=== PATIENT | male | born 1990 | race Caucasian/White ===

== ENCOUNTER 2017-09-15 01:00 | Inpatient (IN) ==
[2017-09-15 02:18] LABS: Basophils # 0.1 K/mcL (0.0-0.2); Basophils % 0.3 %; Hematocrit 44.4 % (37.5-50.1); Hemoglobin 15.5 g/dL (12.9-16.9); Immature Granulocytes % 0.7 % (0-4); Lymphocytes # 1.4 K/mcL (0.6-4.6); Mean Corpuscular HGB Conc 34.9 g/dL (31.6-35.5); Mean Corpuscular Volume 88.8 fL (83.0-100.0); Monocytes # 0.5 K/mcL (0.0-1.3); Neutrophils # 15.8 K/mcL (1.6-8.9); Platelet Count 185 K/mcL (140-400)
[2017-09-15 02:20] LABS: Bilirubin,Urine Negative (Negative); Blood,Urine Moderate (Negative); Clarity,Urine Clear (Clear); Color,Urine Dark Yellow (Yellow); Glucose,Urine (UA) Normal (Normal); Ketones,Urine 15 mg/dL (Negative); Leukocyte Esterase,Urine Negative (Negative); Nitrite,Urine Negative (Negative); Protein,Urine 100 mg/dL (Neg-Trace); Specific Gravity,Urine > 1.030 (1.010-1.025); Urobilinogen,Urine Normal (Normal)
[2017-09-15 02:23] LABS: Bacteria,Urine None Seen per hpf (None-Few); Hyaline Casts,Urine None Seen per lpf (None-Few); RBC,Urine 0-3 per hpf (0-3); Squamous Epithelial Cell,Urine Few per lpf (None-Few)
[2017-09-15 02:37] LABS: BUN/Creatinine Ratio 13 (6-26); Blood Urea Nitrogen 15 mg/dL (6-20); Calcium 9.1 mg/dL (8.6-10.3); Carbon Dioxide 25 mEq/L (23-29); Chloride 99 mEq/L (98-107); Glucose 115 mg/dL (70-105); Osmolality,Calculated 280 (280-300); Potassium 3.8 mEq/L (3.5-5.1); Sodium 134 mEq/L (136-145); eGFR For African Americans > 60 (> 60); eGFR For Non-African Americans > 60 (> 60)
--- NOTE | 2017-09-15 03:45 | Emergency Department Note ---
Disposition Clinical Impression: Tachycardia Sepsis Qualifiers: Sepsis type: sepsis due to unspecified organism Qualified Code(s): A41.9 - Sepsis, unspecified organism Pneumonia Qualifiers: Pneumonia type: due to unspecified organism Laterality: right Lung location: lower lobe of lung Qualified Code(s): J18.1 - Lobar pneumonia, unspecified organism Nausea and vomiting Qualifiers: Vomiting type: unspecified Vomiting Intractability: non-intractable Qualified Code(s): R11.2 - Nausea with vomiting, unspecified Disposition: Admitted As Inpatient Condition: Fair Time of Disposition: 05:46 General Adult HPI - General Chief complaint: ED General Medical Stated complaint: vomiting, tired, coughing up blood Time Seen by Provider: 09/15/17 03:33 Source: patient, family Mode of arrival: ambulatory Limitations: no limitations Nursing Notes Reviewed: Yes Vital Signs Reviewed: Yes - History of Present Illness HPI Narrative: Patient is a 27-year-old male that presents the emergency department for nausea vomiting diarrhea, fever and coughing up blood. Patient and family states that this is been ongoing for the past 2 days. States that he has been seen at an urgent care and another emergency department. Patient states that he has been nauseated and vomiting for the past couple of days and then today he started coughing and felt like he had some redness in his sputum. States that he feels generalized weakness and aches. Patient and family state that he was given fluids and tested for influenza and an outside facility which was negative. It is also negative for strep. Pain Scale: 0 - Related Data Home Medications Medication Instructions Recorded Confirmed No Known Home Drugs 09/15/17 09/15/17 Allergies Allergy/AdvReac Type Severity Reaction Status Date / Time azithromycin Allergy Hives Verified 09/15/17 01:09 carter flavor Allergy Swelling Verified 09/15/17 01:09 of Lip/Tongue/Throat All systems ED: reviewed and negative except as stated. Constitutional: Reports: fever, chills, weakness Cardiovascular: Denies: chest pain Respiratory: Reports: cough, sputum production, other (blood in sputum). Denies : dyspnea Gastrointestinal: Reports: nausea, vomiting, diarrhea. Denies: abdominal pain Genitourinary: Denies: urgency, dysuria, frequency Past Medical History - Past Medical History Medical history: Reports: no medical history Psychiatric history: Reports: no psych history - Social History Smoking Status: Current every day smoker Smokeless Tobacco Status: No Alcohol use: Reports: none Drug use: Reports: none Physical Exam - General Limitations: no limitations General appearance: alert, in no apparent distress Course Vital Signs Temperature 99.4 F 09/15/17 01:10 Pulse Rate 117 09/15/17 01:10 Respiratory Rate 18 09/15/17 01:10 Blood Pressure 113/69 09/15/17 01:10 O2 Sat by Pulse Oximetry 95 09/15/17 01:10 Temperature 99.4 F 09/15/17 01:10 Pulse Rate 120 09/15/17 05:00 Respiratory Rate 36 09/15/17 03:44 Blood Pressure 128/64 09/15/17 05:00 O2 Sat by Pulse Oximetry 97 09/15/17 05:00 Oxygen Delivery Oxygen Delivery Room Air Medical Decision Making - MDM Narrative Medical decision making narrative: Due to the patient presenting to the emergency department with nausea and vomiting and not feeling well we will obtain basic laboratory testing including a CBC, BMP, urinalysis, lactic acid and blood cultures and a chest x-ray. Patient had an elevated white count of 17.9. Remainder laboratory testing was unremarkable. The patient did meet sepsis criteria based on being tachycardic, to And having an elevated white count with a source of infection of pneumonia on chest x-ray. Due to the patient having possible community-acquired pneumonia the patient will be started on ceftriaxone and doxycycline here in the emergency department. The patient had an allergy to azithromycin so doxycycline was chosen. Due to the patient meeting sepsis criteria and having a pneumonia feel that the patient needs to be admitted to the hospital for further evaluation and management and IV antibiotics. I called and spoke with the admitting hospitalist Dr. Cao and he has accepted the patient to his service. Patient will be admitted to the hospital at this time for further evaluation and management. - Medical Records Medical records reviewed: Yes I reviewed the patient's medical records. - Lab Data Lab results reviewed: Yes I reviewed the patient's lab results. Result diagrams: 09/15/17 02:03 09/15/17 02:03 Lab Results 09/15/17 09/15/17 09/15/17 Range/Units 02:03 02:03 02:10 WBC 17.9 H (4.3-11.1) K/mcL RBC 5.00 (4.19-5.50) M/mcL Hgb 15.5 (12.9-16.9) g/dL Hct 44.4 (37.5-50.1) % MCV 88.8 (83.0-100.0) fL MCH 31.0 (28.0-33.3) pg MCHC 34.9 (31.6-35.5) g/dL RDW 12.0 (11.5-14.5) % Plt Count 185 (140-400) K/mcL MPV 10.0 (9.4-12.4) fL Immature Gran % 0.7 (0-4) % Seg Neutrophils % 88.0 % Lymphocytes % 8.0 % Monocytes % 3.0 % Eosinophils % 0.0 % Basophils % 0.3 % Neutrophils # 15.8 H (1.6-8.9) K/mcL Lymphocytes # 1.4 (0.6-4.6) K/mcL Monocytes # 0.5 (0.0-1.3) K/mcL Eosinophils # 0.0 (0.0-0.6) K/mcL Basophils # 0.1 (0.0-0.2) K/mcL Sodium 134 L (136-145) mEq/L Potassium 3.8 (3.5-5.1) mEq/L Chloride 99 (98-107) mEq/L Carbon Dioxide 25 (23-29) mEq/L BUN 15 (6-20) mg/dL Creatinine 1.15 (0.70-1.30) mg/dL Est GFR ( Amer) > 60 (> 60) Est GFR (Non-Af Amer) > 60 (> 60) BUN/Creatinine Ratio 13 (6-26) Glucose 115 H (70-105) mg/dL Calculated Osmolality 280 (280-300) Lactic Acid (0.5-2.2) mmol/L Calcium 9.1 (8.6-10.3) mg/dL Urine Color Dark Yellow (Yellow) Urine Clarity Clear (Clear) Urine pH 6.0 (5.0-8.0) pH Units Ur Specific [place] > 1.030 H (1.010-1.025) Urine Protein 100 H (Neg-Trace) mg/dL Urine Glucose (UA) Normal (Normal) mg/dL Urine Ketones 15 H (Negative) mg/dL Urine Blood Moderate H (Negative) Urine Nitrite Negative (Negative) Urine Bilirubin Negative (Negative) Urine Urobilinogen Normal (Normal) mg/dL Ur Leukocyte Esterase Negative (Negative) Urine Microscopic RBC 0-3 (0-3) per hpf Urine Microscopic WBC 3-5 H (0-3) per hpf Ur Squamous Epith Cells Few (None-Few) per lpf Urine Bacteria None Seen (None-Few) per hpf Hyaline Casts None Seen (None-Few) per lpf Ur Culture Indicated? NO (NO) 09/15/17 Range/Units 03:58 WBC (4.3-11.1) K/mcL RBC (4.19-5.50) M/mcL Hgb (12.9-16.9) g/dL Hct (37.5-50.1) % MCV (83.0-100.0) fL MCH (28.0-33.3) pg MCHC (31.6-35.5) g/dL RDW (11.5-14.5) % Plt Count (140-400) K/mcL MPV (9.4-12.4) fL Immature Gran % (0-4) % Seg Neutrophils % % Lymphocytes % % Monocytes % % Eosinophils % % Basophils % % Neutrophils # (1.6-8.9) K/mcL Lymphocytes # (0.6-4.6) K/mcL Monocytes # (0.0-1.3) K/mcL Eosinophils # (0.0-0.6) K/mcL Basophils # (0.0-0.2) K/mcL Sodium (136-145) mEq/L Potassium (3.5-5.1) mEq/L Chloride (98-107) mEq/L Carbon Dioxide (23-29) mEq/L BUN (6-20) mg/dL Creatinine (0.70-1.30) mg/dL Est GFR ( Amer) (> 60) Est GFR (Non-Af Amer) (> 60) BUN/Creatinine Ratio (6-26) Glucose (70-105) mg/dL Calculated Osmolality (280-300) Lactic Acid 1.3 (0.5-2.2) mmol/L Calcium (8.6-10.3) mg/dL Urine Color (Yellow) Urine Clarity (Clear) Urine pH (5.0-8.0) pH Units Ur Specific [place] (1.010-1.025) Urine Protein (Neg-Trace) mg/dL Urine Glucose (UA) (Normal) mg/dL Urine Ketones (Negative) mg/dL Urine Blood (Negative) Urine Nitrite (Negative) Urine Bilirubin (Negative) Urine Urobilinogen (Normal) mg/dL Ur Leukocyte Esterase (Negative) Urine Microscopic RBC (0-3) per hpf Urine Microscopic WBC (0-3) per hpf Ur Squamous Epith Cells (None-Few) per lpf Urine Bacteria (None-Few) per hpf Hyaline Casts (None-Few) per lpf Ur Culture Indicated? (NO) - Radiology Data Radiology results reviewed: Yes I reviewed the patient's radiology results. Chest X-Ray 09/15/17 03:40 IMPRESSION: Right lower lobe airspace disease. D/ / Suleman Osorio MD / Suleman Osorio MD Interpreting Provider: Suleman Osorio MD
[2017-09-15] MEDS ORDERED: 0.9 % Sodium Chloride 1,000 ML IVC ONE (03:48)
[2017-09-15] MEDS ORDERED: Ondansetron 4 MG/2 ML VIAL IVP ONE (03:48)
[2017-09-15] MEDS ORDERED: Doxycycline 100 MG in 0.9 % Sodium Chloride Mini Bag 100 ML IVPB ONE (04:19)
[2017-09-15] MEDS ORDERED: cefTRIAXone 1,000 MG in Water for inj. (sterile) 20 ML 10 ML IVP ONE (04:21)
[2017-09-15] MEDS ORDERED: Ondansetron 4 MG/2 ML VIAL IVP PRN (05:05)
[2017-09-15] MEDS ORDERED: Naloxone 0.4 MG/ML INJ IVP PRN (05:08)
--- NOTE | 2017-09-15 05:08 | Emergency Department Note ---
Disposition Clinical Impression: Tachycardia Sepsis Qualifiers: Sepsis type: sepsis due to unspecified organism Qualified Code(s): A41.9 - Sepsis, unspecified organism Pneumonia Qualifiers: Pneumonia type: due to unspecified organism Laterality: right Lung location: lower lobe of lung Qualified Code(s): J18.1 - Lobar pneumonia, unspecified organism Nausea and vomiting Qualifiers: Vomiting type: unspecified Vomiting Intractability: non-intractable Qualified Code(s): R11.2 - Nausea with vomiting, unspecified Disposition: Admitted As Inpatient Condition: Fair General Adult HPI - General Chief complaint: ED General Medical Stated complaint: vomiting, tired, coughing up blood Time Seen by Provider: 09/15/17 03:33 Source: patient, family Mode of arrival: ambulatory Limitations: no limitations Nursing Notes Reviewed: Yes Vital Signs Reviewed: Yes - History of Present Illness Pain Scale: 0 - Related Data Home Medications Medication Instructions Recorded Confirmed No Known Home Drugs 09/15/17 09/15/17 Allergies Allergy/AdvReac Type Severity Reaction Status Date / Time azithromycin Allergy Hives Verified 09/15/17 01:09 carter flavor Allergy Swelling Verified 09/15/17 01:09 of Lip/Tongue/Throat Constitutional: Reports: fever, chills, weakness Cardiovascular: Denies: chest pain Respiratory: Reports: cough, sputum production, other (blood in sputum). Denies : dyspnea Gastrointestinal: Reports: nausea, vomiting, diarrhea. Denies: abdominal pain Genitourinary: Denies: urgency, dysuria, frequency Past Medical History - Past Medical History Medical history: Reports: no medical history Psychiatric history: Reports: no psych history - Social History Smoking Status: Current every day smoker Smokeless Tobacco Status: No Alcohol use: Reports: none Drug use: Reports: none Physical Exam - General Limitations: no limitations General appearance: alert, in no apparent distress Course Vital Signs Temperature 99.4 F 09/15/17 01:10 Pulse Rate 117 09/15/17 01:10 Respiratory Rate 18 09/15/17 01:10 Blood Pressure 113/69 09/15/17 01:10 O2 Sat by Pulse Oximetry 95 09/15/17 01:10 Temperature 102.1 F H 09/15/17 05:58 Pulse Rate 122 09/15/17 05:58 Respiratory Rate 32 09/15/17 05:58 Blood Pressure 125/68 09/15/17 05:58 O2 Sat by Pulse Oximetry 96 09/15/17 05:58 Oxygen Delivery Oxygen Delivery Room Air Medical Decision Making - Lab Data Result diagrams: 09/15/17 02:03 09/15/17 02:03 Lab Results 09/15/17 09/15/17 09/15/17 Range/Units 02:03 02:03 02:10 WBC 17.9 H (4.3-11.1) K/mcL RBC 5.00 (4.19-5.50) M/mcL Hgb 15.5 (12.9-16.9) g/dL Hct 44.4 (37.5-50.1) % MCV 88.8 (83.0-100.0) fL MCH 31.0 (28.0-33.3) pg MCHC 34.9 (31.6-35.5) g/dL RDW 12.0 (11.5-14.5) % Plt Count 185 (140-400) K/mcL MPV 10.0 (9.4-12.4) fL Immature Gran % 0.7 (0-4) % Seg Neutrophils % 88.0 % Lymphocytes % 8.0 % Monocytes % 3.0 % Eosinophils % 0.0 % Basophils % 0.3 % Neutrophils # 15.8 H (1.6-8.9) K/mcL Lymphocytes # 1.4 (0.6-4.6) K/mcL Monocytes # 0.5 (0.0-1.3) K/mcL Eosinophils # 0.0 (0.0-0.6) K/mcL Basophils # 0.1 (0.0-0.2) K/mcL Sodium 134 L (136-145) mEq/L Potassium 3.8 (3.5-5.1) mEq/L Chloride 99 (98-107) mEq/L Carbon Dioxide 25 (23-29) mEq/L BUN 15 (6-20) mg/dL Creatinine 1.15 (0.70-1.30) mg/dL Est GFR ( Amer) > 60 (> 60) Est GFR (Non-Af Amer) > 60 (> 60) BUN/Creatinine Ratio 13 (6-26) Glucose 115 H (70-105) mg/dL Calculated Osmolality 280 (280-300) Lactic Acid (0.5-2.2) mmol/L Calcium 9.1 (8.6-10.3) mg/dL Urine Color Dark Yellow (Yellow) Urine Clarity Clear (Clear) Urine pH 6.0 (5.0-8.0) pH Units Ur Specific [place] > 1.030 H (1.010-1.025) Urine Protein 100 H (Neg-Trace) mg/dL Urine Glucose (UA) Normal (Normal) mg/dL Urine Ketones 15 H (Negative) mg/dL Urine Blood Moderate H (Negative) Urine Nitrite Negative (Negative) Urine Bilirubin Negative (Negative) Urine Urobilinogen Normal (Normal) mg/dL Ur Leukocyte Esterase Negative (Negative) Urine Microscopic RBC 0-3 (0-3) per hpf Urine Microscopic WBC 3-5 H (0-3) per hpf Ur Squamous Epith Cells Few (None-Few) per lpf Urine Bacteria None Seen (None-Few) per hpf Hyaline Casts None Seen (None-Few) per lpf Ur Culture Indicated? NO (NO) 09/15/17 Range/Units 03:58 WBC (4.3-11.1) K/mcL RBC (4.19-5.50) M/mcL Hgb (12.9-16.9) g/dL Hct (37.5-50.1) % MCV (83.0-100.0) fL MCH (28.0-33.3) pg MCHC (31.6-35.5) g/dL RDW (11.5-14.5) % Plt Count (140-400) K/mcL MPV (9.4-12.4) fL Immature Gran % (0-4) % Seg Neutrophils % % Lymphocytes % % Monocytes % % Eosinophils % % Basophils % % Neutrophils # (1.6-8.9) K/mcL Lymphocytes # (0.6-4.6) K/mcL Monocytes # (0.0-1.3) K/mcL Eosinophils # (0.0-0.6) K/mcL Basophils # (0.0-0.2) K/mcL Sodium (136-145) mEq/L Potassium (3.5-5.1) mEq/L Chloride (98-107) mEq/L Carbon Dioxide (23-29) mEq/L BUN (6-20) mg/dL Creatinine (0.70-1.30) mg/dL Est GFR ( Amer) (> 60) Est GFR (Non-Af Amer) (> 60) BUN/Creatinine Ratio (6-26) Glucose (70-105) mg/dL Calculated Osmolality (280-300) Lactic Acid 1.3 (0.5-2.2) mmol/L Calcium (8.6-10.3) mg/dL Urine Color (Yellow) Urine Clarity (Clear) Urine pH (5.0-8.0) pH Units Ur Specific [place] (1.010-1.025) Urine Protein (Neg-Trace) mg/dL Urine Glucose (UA) (Normal) mg/dL Urine Ketones (Negative) mg/dL Urine Blood (Negative) Urine Nitrite (Negative) Urine Bilirubin (Negative) Urine Urobilinogen (Normal) mg/dL Ur Leukocyte Esterase (Negative) Urine Microscopic RBC (0-3) per hpf Urine Microscopic WBC (0-3) per hpf Ur Squamous Epith Cells (None-Few) per lpf Urine Bacteria (None-Few) per hpf Hyaline Casts (None-Few) per lpf Ur Culture Indicated? (NO) Critical Care Time Critical Care Time: Yes Total Critical Care Time: 35 Attestation: Critical care performed: Time is exclusive of separately billable procedures. Time includes: direct patient care, patient reassessment, coordination of patient care, interpretation of data (laboratory data, radiology data, and respiratory data), review of patient's medical records, medical consultation and documentation of patient care. Procedures included in critical care time: Procedures excluded from critical care time: Attestation Statement - Attestation Attestation: I, Gilberto Delgadillo MD, personally evaluated this patient and discussed their management with the resident physician. I reviewed the resident's note and agree with the documented findings, medical decision making, and plan of care. 27-year-old male presents to the emergency department with a complaint of cough and fatigue for 2-3 days prior to arrival. He has had some vomiting for the past few days. He also has had a fever up to 103. Some pleuritic chest pain with coughing. Today started coughing up some blood-streaked sputum. Mild shortness of breath. No prior history of any breathing problems. On examination patient is a well-developed obese male in no acute distress but does appear acutely ill. He is alert and oriented 3. There is no cyanosis or diaphoresis. Chest is nontender to palpation. Breath sounds are clear and equal bilaterally. No rales or wheezes noted. Heart regular with a mild tachycardia. Abdomen soft and nontender with normal bowel sounds. Labs reviewed. Chest x-ray shows a right lower lobe pneumonia. Blood cultures obtained. IV antibiotics initiated. The hospitalist, Dr. Cao , was consulted and accepted admission of the patient.
--- NOTE | 2017-09-15 05:46 | Internal Med History&Physical ---
Date of Encounter: 09/15/17 Time of Encounter: 05:42 Internal Medicine - H&P: HPI Chief complaint: Fever Admitted From: Emergency Dept Plans for Post Hospital Care: Home History of present illness: Mr. Marina is a 27 year old male who is fairly healthy has no chronic medical conditions and is not on any medications who presents as he has been having a fever up to 103 for a couple days associated with shortness of breath, a productive cough, nausea, vomiting, loose stools. This started 2 days ago and he ended up going to [facility] urgent care and the ED there as well and was discharged on Zofran and was told that he was dehydrated. His ago and tells me no chest x-ray was done at the time. He continued to have symptoms at home and she brought him to [place] were he was tachycardic in the 120s. MAXIMUM TEMPERATURE 99.4 on presentation. His workup showed leukocytosis and chest x- ray showed an infiltrate in the right lower lung. The patient was given IV doxycycline and IV ceftriaxone and 1 L normal saline bolus and we were asked to admit the patient. The family states that his cough is productive of yellowish sputum with some bloody streaks. His loose stools were significant for the last couple days however this morning he only had 1 watery stool. He has had no sick contacts. Has not been on any antibiotics recently. Denies any headache, blurry vision, chest pain, abdominal pain, urinary symptoms, or neurological symptoms. Past Med Surg Social Fam HX - Past Medical History Medical history: no medical history Psychiatric history: no psych history - Social History Smoking Status: Current every day smoker Smokeless Tobacco Status: No Alcohol use: none Drug use: none Internal Medicine - H&P: Meds No Known Home Drugs 09/15/17 [History] 3 Allergy/AdvReac Type Severity Reaction Status Date / Time azithromycin Allergy Hives Verified 09/15/17 01:09 carter flavor Allergy Swelling Verified 09/15/17 01:09 of Lip/Tongue/Throat All Systems PM: A 10-system review of systems was performed and is negative for pertinent findings except as documented above in the HPI. Review of systems: All systems reviewed are negative except as mentioned above - Constitutional Vitals: Temp Pulse Resp BP Pulse Ox 99.4 F 120 36 128/64 97 09/15/17 01:10 09/15/17 05:00 09/15/17 03:44 09/15/17 05:00 09/15/17 05:00 Exam: GEN: Lethargic HEENT: AT, NC, No cyanosis, oral mucosa is moist, No JVD Lymphatics: No lymphadenoapthy Eyes: Extrocular muscles intact, anicteric CVS: Tachycardic. S1, S2, No m/r/g RESP: Rhonchorous at the right lower lung field posteriorly ABD: Soft, NT, ND, +BS EXT: No edema, No rashes, 2+ DP NEURO: Nonfocal, CN II-XII intact, No focal motor or sensory deficits Psych: Cooperative, Not anxious or depressed Internal Med - H&P Results - Labs CBC & Chem 7: 09/15/17 02:03 09/15/17 02:03 - Assessment and plan (1) Sepsis Current Visit: Yes Status: Acute Assessment and plan: Patient meets criteria with tachycardia and leukocytosis. He also has a source with pneumonia. We will treat underlying cause as below. Has normal lactic acid. Qualifiers: Sepsis type: sepsis due to unspecified organism Qualified Code(s): A41.9 - Sepsis, unspecified organism (2) Community acquired pneumonia Current Visit: Yes Status: Acute Assessment and plan: We will place the patient on Levaquin IV. Maintenance IV fluids with normal saline. Nebs when necessary. Patient is not hypoxic. Check sputum cultures. Check urine strep and Legionella. Follow-up on blood cultures. Qualifiers: Laterality: right Lung location: lower lobe of lung Qualified Code(s): J18.1 - Lobar pneumonia, unspecified organism (3) Nausea & vomiting Current Visit: Yes Status: Acute Assessment and plan: This is associated with loose stools. The loose stools seem to be improving. He has no abdominal pain. I think for now we can treat symptomatically and check stool panel. Symptoms may be attributed to his overall sickness with pneumonia. We can get a CT abdomen and pelvis if his symptoms persist but hold off for now and monitor. Qualifiers: Vomiting type: unspecified Vomiting Intractability: unspecified Qualified Code(s): R11.2 - Nausea with vomiting, unspecified (4) Elevated glucose Current Visit: Yes Status: Acute Assessment and plan: The patient has mild elevated glucose on his BMP. It was 115. We will check A1c. (5) DVT prophylaxis Current Visit: Yes Status: Acute Assessment and plan: SCDs - Time Spent With Patient Total time spent is greater than 50% in coordination of care (as documented) at patient's floor/unit and/or counseling patient:
[2017-09-15] MEDS ORDERED: *HR* Heparin 5,000 UNIT/ML VIAL SQ SCH (06:00)
[2017-09-15] MEDS ORDERED: Ipratropium/Albuterol Neb 3 ML IH SCH (10:00)
[2017-09-15] MEDS: Levofloxacin 750 MG/150 ML 750 MG/150 ML BAG IVPB SCH (10:11)
[2017-09-15] MEDS ORDERED: *HR* Metoprolol 5 MG/5 ML VIAL IVP PRN (10:53)
--- NOTE | 2017-09-15 11:01 | Internal Med Progress Note ---
Date of Encounter: 09/15/17 Time of Encounter: 10:57 - Assessment and plan (1) Sepsis Current Visit: Yes Status: Acute Assessment and plan: Patient meets criteria with tachycardia and leukocytosis. He also has a source with pneumonia. We will treat underlying cause as below. Has normal lactic acid. He is dehydrated seen on physical exam and urine. CXR showed pneumonia. Of note, he complains of N/V and techs noted his stool is liquid. May need to switch to Zosyn vs continue Levaquin May need CT abdomen/pelvis - Give 2 L ringer lactate, he has already received 1 L on admission but patient needs aggressive fluid. - Follow-up blood cultures, sputum and antigens. Qualifiers: Sepsis type: sepsis due to unspecified organism Qualified Code(s): A41.9 - Sepsis, unspecified organism (2) Community acquired pneumonia Current Visit: Yes Status: Acute Assessment and plan: Continue Levaquin - add 2 L LR bolus - Patient is not hypoxic. Check sputum cultures. - Check urine strep and Legionella. Follow-up on blood cultures. Qualifiers: Laterality: right Lung location: lower lobe of lung Qualified Code(s): J18.1 - Lobar pneumonia, unspecified organism (3) Nausea & vomiting Current Visit: Yes Status: Acute Assessment and plan: This is associated with loose stools. The loose stools seem to be improving. He has no abdominal pain. I think for now we can treat symptomatically and check stool panel. Symptoms may be attributed to his overall sickness with pneumonia. Consider CT abdomen and pelvis if his symptoms persist but hold off for now and monitor. Qualifiers: Vomiting type: unspecified Vomiting Intractability: unspecified Qualified Code(s): R11.2 - Nausea with vomiting, unspecified (4) Elevated glucose Current Visit: Yes Status: Acute Assessment and plan: The patient has mild elevated glucose on his BMP. We will check A1c. (5) DVT prophylaxis Current Visit: Yes Status: Acute Assessment and plan: SCDs - Time Spent With Patient Total time spent is greater than 50% in coordination of care (as documented) at patient's floor/unit and/or counseling patient: - Subjective Interval history: Patient complains of being tired. Nursing reports dark urine which I do appreciate tea colored urine at bedside as well. He denies any shortness of breath at the moment. A stool sample was ordered on admission and tech noted that it was very loose. - Constitutional Vitals: Temp Pulse Resp BP Pulse Ox 102.1 F H 122 19 125/68 94 09/15/17 05:58 09/15/17 05:58 09/15/17 09:59 09/15/17 05:58 09/15/17 10:21 - Head Head exam: Present: atraumatic, normocephalic - Eye Eye exam: Present: PERRL, conjuntiva pink, sclera anicteric Pupils: Present: PERRL - ENT ENT exam: Present: mucous membranes dry - Neck Neck exam general surgery: Present: supple, trachea midline. Absent: lymphadenopathy - Respiratory Respiratory exam: Present: CTAB. Absent: accessory muscle use, rales, rhonchi, wheezes - Cardiovascular Cardiovascular exam: Present: +S1, +S2, tachycardia. Absent: diastolic murmur, gallop, rubs, systolic murmur - GI/Abdominal GI/Abdominal exam: Present: normal bowel sounds, soft, no peritoneal signs. Absent: distended, tenderness - Additional comments: Collected urine at bedside is dark, tea colored. - Extremities Exam Extremities exam: Present: warm, radial pulses palpable and symmetrical. Absent : calf tenderness, cyanotic, pedal edema - Neurological Exam Neurological exam: Present: CN II-XII intact, oriented X3, no focal deficits. Absent: pronater drift, facial droop, speech deficit - Skin Skin exam: Present: dry, intact Internal Medicine: Result - Labs CBC & Chem 7: 09/15/17 02:03 09/15/17 02:03 Consult Discharge Plan - Plan Referrals: NONE,PCP [Primary Care Provider] -
[2017-09-15] MEDS: Acetaminophen 325 MG TABLET PO PRN ×2 (11:13→16:28)
[2017-09-15] MEDS: Ringers Solution, Lactated 2,000 ML IVC ONE ×2 (11:14→16:20)
[2017-09-15] MEDS ORDERED: Ipratropium/Albuterol Neb 3 ML IH PRN (11:51)
[2017-09-15 13:24] LABS: C.difficile Toxin A/B by PCR Not detected (Not detect); Campylobacter by PCR Not detected (Not detect); Cryptosporidium by PCR Not detected (Not detect); E. coli O157 by PCR Not detected (Not detect); Enteroaggregative E.coli(EAEC) Not detected (Not detect); Enteropathogenic E.coli(EPEC) Not detected (Not detect); Enterotoxigenic E.coli (ETEC) Not detected (Not detect); Plesiomonas shigelloides PCR Not detected (Not detect); Salmonella PCR Not detected (Not detect); Shig/EnteroinvasiveE coli EIEC Not detected (Not detect); Shigalike tox-prod E coli STEC Not detected (Not detect); Vibrio PCR Not detected (Not detect); Vibrio cholerae PCR Not detected (Not detect); Yersinia enterocolitica PCR Not detected (Not detect)
[2017-09-15 13:25] LABS: Adenovirus F 40/41 PCR Not detected (Not detect); Astrovirus PCR Not detected (Not detect); Cyclospora cayetanensis PCR Not detected (Not detect); Entamoeba histolytica PCR Not detected (Not detect); Giardia lamblia PCR Not detected (Not detect); Norovirus GI/GII PCR Not detected (Not detect); Rotavirus A PCR Not detected (Not detect); Sapovirus PCR Not detected (Not detect)
[2017-09-15] MEDS ORDERED: Ringers Solution, Lactated 1,000 ML ONE (16:13)
[2017-09-15 18:47] LABS: Amphetamine Screen,Urine Negative ng/mL (Cutoff=1000); Barbiturate Screen,Urine Negative ng/mL (Cutoff=200); Benzodiazepines Screen,Urine Negative ng/mL (Cutoff=200); Cannabinoid Screen,Urine Negative ng/mL (Cutoff = 50); Cocaine Screen,Urine Negative ng/mL (Cutoff= 300); Opiate Screen,Urine Negative ng/mL (Cutoff=300); Phencyclidine Screen,Urine Negative ng/mL (Cutoff=25)
[2017-09-16 02:23] LABS: Basophils % 0.1 %; Hematocrit 37.6 % (37.5-50.1); Immature Granulocytes % 0.2 % (0-4); Lymphocytes # 1.1 K/mcL (0.6-4.6); Lymphocytes % 11.9 %; Mean Corpuscular HGB Conc 34.6 g/dL (31.6-35.5); Mean Corpuscular Hemoglobin 29.8 pg (28.0-33.3); Mean Corpuscular Volume 86.2 fL (83.0-100.0); Mean Platelet Volume 10.5 fL (9.4-12.4); Monocytes # 0.3 K/mcL (0.0-1.3); Monocytes % 3.7 %; Neutrophils # 7.6 K/mcL (1.6-8.9); Platelet Count 155 K/mcL (140-400); Red Blood Count 4.36 M/mcL (4.19-5.50); Red Cell Distribution Width 11.9 % (11.5-14.5); Segmented Neutrophils % 84.1 %
[2017-09-16 02:51] LABS: BUN/Creatinine Ratio 12 (6-26); Blood Urea Nitrogen 11 mg/dL (6-20); Calcium 8.4 mg/dL (8.6-10.3); Carbon Dioxide 21 mEq/L (23-29); Chloride 103 mEq/L (98-107); Glucose 111 mg/dL (70-105); Magnesium 1.8 mg/dL (1.6-2.6); Osmolality,Calculated 274 (280-300); Potassium 3.4 mEq/L (3.5-5.1); Sodium 132 mEq/L (136-145); eGFR For African Americans > 60 (> 60); eGFR For Non-African Americans > 60 (> 60)
[2017-09-16] MEDS: Acetaminophen 325 MG TABLET PO PRN ×2 (07:37→18:28)
[2017-09-16] MEDS: Levofloxacin 750 MG/150 ML 750 MG/150 ML BAG IVPB SCH (07:37)
--- NOTE | 2017-09-16 09:15 | Internal Med Progress Note ---
Date of Encounter: 09/16/17 Time of Encounter: 09:13 - Assessment and plan (1) Sepsis Current Visit: Yes Status: Acute Assessment and plan: Patient meets criteria with tachycardia and leukocytosis. He also has a source with pneumonia. We will treat underlying cause as below. Has normal lactic acid. He is dehydrated seen on physical exam and urine. CXR showed pneumonia. GI panel negative Of note, he complains of N/V and techs noted his stool is liquid. May need to switch to Zosyn vs continue Levaquin May need CT abdomen/pelvis, or TTE though denies any drug abuse Still tachycardic despite fluid Follow-up blood cultures: NGTD Qualifiers: Sepsis type: sepsis due to unspecified organism Qualified Code(s): A41.9 - Sepsis, unspecified organism (2) Community acquired pneumonia Current Visit: Yes Status: Acute Assessment and plan: - Continue Levaquin - Patient is not hypoxic. -Urine strep and Legionella negative Qualifiers: Laterality: right Lung location: lower lobe of lung Qualified Code(s): J18.1 - Lobar pneumonia, unspecified organism (3) Nausea & vomiting Current Visit: Yes Status: Acute Assessment and plan: This is associated with loose stools. He has no abdominal pain. Symptoms may be attributed to his overall sickness with pneumonia/sepsis. Consider CT abdomen and pelvis if his symptoms persist but hold off for now and monitor. Symptoms improving but still has loose stools Qualifiers: Vomiting type: unspecified Vomiting Intractability: unspecified Qualified Code(s): R11.2 - Nausea with vomiting, unspecified (4) Elevated glucose Current Visit: Yes Status: Acute Assessment and plan: The patient has mild elevated glucose on his BMP. f/u A1C (5) DVT prophylaxis Current Visit: Yes Status: Acute - Time Spent With Patient Total time spent is greater than 50% in coordination of care (as documented) at patient's floor/unit and/or counseling patient: - Subjective Interval history: Patient complains of being tired. Nursing reports dark urine which I do appreciate tea colored urine at bedside as well. He denies any shortness of breath at the moment. A stool sample was ordered on admission and tech noted that it was very loose. 09/16: states overall feeling better, n/v resolved but still having loose stools. Patient still diaphoretic and tachycardic - Constitutional Vitals: Temp Pulse Resp BP Pulse Ox 100.1 F H 109 18 117/62 94 09/16/17 07:21 09/16/17 07:21 09/16/17 07:21 09/16/17 07:21 09/16/17 07:21 - Head Head exam: Present: atraumatic, normocephalic - Eye Eye exam: Present: PERRL, conjuntiva pink, sclera anicteric Pupils: Present: PERRL - Neck Neck exam general surgery: Present: supple, trachea midline. Absent: lymphadenopathy - Respiratory Respiratory exam: Present: CTAB. Absent: accessory muscle use, rales, rhonchi, wheezes - Cardiovascular Cardiovascular exam: Present: RRR, +S1, +S2. Absent: diastolic murmur, gallop, rubs, systolic murmur - GI/Abdominal GI/Abdominal exam: Present: normal bowel sounds, soft, no peritoneal signs. Absent: distended, tenderness - Extremities Exam Extremities exam: Present: warm, radial pulses palpable and symmetrical. Absent : calf tenderness, cyanotic, pedal edema - Neurological Exam Neurological exam: Present: CN II-XII intact, oriented X3, no focal deficits. Absent: pronater drift, facial droop, speech deficit - Skin Skin exam: Present: dry, intact Internal Medicine: Result - Labs CBC & Chem 7: 09/16/17 01:36 09/16/17 01:36 Labs: Short CBC 09/16/17 Range/Units 01:36 WBC 9.1 (4.3-11.1) K/mcL Hgb 13.0 D (12.9-16.9) g/dL Hct 37.6 (37.5-50.1) % Plt Count 155 (140-400) K/mcL Neutrophils # 7.6 (1.6-8.9) K/mcL BMP 09/16/17 01:36 Sodium 132 L Potassium 3.4 L Chloride 103 Carbon Dioxide 21 L BUN 11 Creatinine 0.89 Glucose 111 H Calcium 8.4 L Consult Discharge Plan - Plan Referrals: NONE,PCP [Primary Care Provider] -
[2017-09-16] MEDS: GuaiFENesin/Dextromethorphan TABLET PO SCH (19:05)
[2017-09-16] MEDS ORDERED: GuaiFENesin Liq 200 MG/10 ML UDC PO SCH (20:00)
[2017-09-17 02:08] LABS: BUN/Creatinine Ratio 17 (6-26); Blood Urea Nitrogen 16 mg/dL (6-20); Calcium 8.7 mg/dL (8.6-10.3); Carbon Dioxide 24 mEq/L (23-29); Chloride 104 mEq/L (98-107); Glucose 103 mg/dL (70-105); Osmolality,Calculated 285 (280-300); Potassium 3.5 mEq/L (3.5-5.1); Sodium 137 mEq/L (136-145); eGFR For African Americans > 60 (> 60); eGFR For Non-African Americans > 60 (> 60)
[2017-09-17 02:30] LABS: Basophils % 0.3 %; Eosinophils # 0.3 K/mcL (0.0-0.6); Eosinophils % 5.4 %; Hematocrit 38.7 % (37.5-50.1); Hemoglobin 13.5 g/dL (12.9-16.9); Immature Granulocytes % 0.5 % (0-4); Lymphocytes # 1.3 K/mcL (0.6-4.6); Lymphocytes % 20.7 %; Mean Corpuscular HGB Conc 34.9 g/dL (31.6-35.5); Mean Corpuscular Hemoglobin 30.6 pg (28.0-33.3); Mean Corpuscular Volume 87.8 fL (83.0-100.0); Mean Platelet Volume 10.5 fL (9.4-12.4); Monocytes # 0.5 K/mcL (0.0-1.3); Monocytes % 7.4 %; Platelet Count 187 K/mcL (140-400); Red Blood Count 4.41 M/mcL (4.19-5.50); Segmented Neutrophils % 65.7 %
[2017-09-17] MEDS ORDERED: Ringers Solution, Lactated 1,000 ML IVC ONE (09:28)
[2017-09-17] MEDS: Levofloxacin 750 MG/150 ML 750 MG/150 ML BAG IVPB SCH (09:28)
[2017-09-17] MEDS: GuaiFENesin/Dextromethorphan TABLET PO SCH ×2 (09:29→19:24)
--- NOTE | 2017-09-17 09:30 | Internal Med Progress Note ---
Date of Encounter: 09/17/17 Time of Encounter: 09:27 - Assessment and plan (1) Sepsis Current Visit: Yes Status: Acute Assessment and plan: Patient meets criteria with tachycardia and leukocytosis. He also has a source with pneumonia. We will treat underlying cause as below. Has normal lactic acid. He is dehydrated seen on physical exam and urine. CXR showed pneumonia. Of note, he complains of N/V and techs noted his stool is liquid. May need to switch to Zosyn vs continue Levaquin Consider TTE though denies any drug abuse Blood cultures, no growth to date. Unsresolved GI symptoms and poor appetite - will get CT abdomen/pelvis without contrast. Negative GI panel. Still tachycardic despite fluid yesterday but today and yesterday night he has not eating at all - give addition IV fluid today. WBCs within normal limits Qualifiers: Sepsis type: sepsis due to unspecified organism Qualified Code(s): A41.9 - Sepsis, unspecified organism (2) Community acquired pneumonia Current Visit: Yes Status: Acute Assessment and plan: - Continue Levaquin - Patient is not hypoxic. -Urine strep and Legionella negative Qualifiers: Laterality: right Lung location: lower lobe of lung Qualified Code(s): J18.1 - Lobar pneumonia, unspecified organism (3) Nausea & vomiting Current Visit: Yes Status: Acute Assessment and plan: This is associated with loose stools. He has no abdominal pain. Symptoms may be attributed to his overall sickness with pneumonia/sepsis. nasuea and vomiting improved but still has loose stools -CT abdomen/pelvis Qualifiers: Vomiting type: unspecified Vomiting Intractability: unspecified Qualified Code(s): R11.2 - Nausea with vomiting, unspecified (4) Elevated glucose Current Visit: Yes Status: Acute Assessment and plan: The patient has mild elevated glucose on his BMP. f/u A1C (5) DVT prophylaxis Current Visit: Yes Status: Acute Assessment and plan: SCDs - Time Spent With Patient Total time spent is greater than 50% in coordination of care (as documented) at patient's floor/unit and/or counseling patient: - Subjective Interval history: Patient complains of being tired. Nursing reports dark urine which I do appreciate tea colored urine at bedside as well. He denies any shortness of breath at the moment. A stool sample was ordered on admission and tech noted that it was very loose. 09/16: n/v resolved but still having loose stools. Patient still diaphoretic and tachycardic 09/17: feels much better than yesterday, loose stools is not improving at all, diet is poor. Looks like he has only eatin 20% of breakfast. - Constitutional Vitals: Temp Pulse Resp BP Pulse Ox 99.3 F 90 18 106/68 95 09/17/17 07:10 09/17/17 07:10 09/17/17 07:10 09/17/17 07:10 09/17/17 07:10 - Head Head exam: Present: atraumatic, normocephalic - Eye Eye exam: Present: PERRL, conjuntiva pink, sclera anicteric Pupils: Present: PERRL - Neck Neck exam general surgery: Present: supple, trachea midline. Absent: lymphadenopathy - Respiratory Respiratory exam: Present: CTAB. Absent: accessory muscle use, rales, rhonchi, wheezes - Cardiovascular Cardiovascular exam: Present: RRR, +S1, +S2. Absent: diastolic murmur, gallop, rubs, systolic murmur - GI/Abdominal GI/Abdominal exam: Present: normal bowel sounds, soft, no peritoneal signs. Absent: distended, tenderness - Extremities Exam Extremities exam: Present: warm, radial pulses palpable and symmetrical. Absent : calf tenderness, cyanotic, pedal edema - Neurological Exam Neurological exam: Present: CN II-XII intact, oriented X3, no focal deficits. Absent: pronater drift, facial droop, speech deficit - Skin Skin exam: Present: dry, intact Internal Medicine: Result - Labs CBC & Chem 7: 09/17/17 01:22 09/17/17 01:22 Labs: Short CBC 09/17/17 Range/Units 01:22 WBC 6.1 (4.3-11.1) K/mcL Hgb 13.5 (12.9-16.9) g/dL Hct 38.7 (37.5-50.1) % Plt Count 187 (140-400) K/mcL Neutrophils # 4.0 (1.6-8.9) K/mcL BMP 09/17/17 01:22 Sodium 137 Potassium 3.5 Chloride 104 Carbon Dioxide 24 BUN 16 Creatinine 0.93 Glucose 103 Calcium 8.7 - VTE Documentation of Mechanical Device: Intermittent pneumatic compression device Consult Discharge Plan - Plan Referrals: NONE,PCP [Primary Care Provider] -
[2017-09-17] MEDS: GuaiFENesin Liq 200 MG/10 ML UDC PO PRN (14:09)
[2017-09-18 01:34] LABS: Basophils % 0.6 %; Eosinophils # 0.5 K/mcL (0.0-0.6); Eosinophils % 7.5 %; Hematocrit 38.4 % (37.5-50.1); Hemoglobin 13.1 g/dL (12.9-16.9); Immature Granulocytes % 0.6 % (0-4); Lymphocytes # 1.5 K/mcL (0.6-4.6); Lymphocytes % 24.2 %; Mean Corpuscular HGB Conc 34.1 g/dL (31.6-35.5); Mean Corpuscular Hemoglobin 29.8 pg (28.0-33.3); Mean Corpuscular Volume 87.5 fL (83.0-100.0); Mean Platelet Volume 10.2 fL (9.4-12.4); Monocytes # 0.6 K/mcL (0.0-1.3); Monocytes % 8.9 %; Neutrophils # 3.7 K/mcL (1.6-8.9); Platelet Count 190 K/mcL (140-400); Red Blood Count 4.39 M/mcL (4.19-5.50); Red Cell Distribution Width 12.1 % (11.5-14.5); Segmented Neutrophils % 58.2 %
[2017-09-18 01:55] LABS: BUN/Creatinine Ratio 21 (6-26); Blood Urea Nitrogen 16 mg/dL (6-20); Calcium 8.7 mg/dL (8.6-10.3); Carbon Dioxide 25 mEq/L (23-29); Chloride 106 mEq/L (98-107); Glucose 114 mg/dL (70-105); Osmolality,Calculated 290 (280-300); Potassium 3.4 mEq/L (3.5-5.1); Sodium 139 mEq/L (136-145); eGFR For African Americans > 60 (> 60); eGFR For Non-African Americans > 60 (> 60)
[2017-09-18] MEDS: GuaiFENesin/Dextromethorphan TABLET PO SCH (07:44)
[2017-09-18] MEDS: GuaiFENesin Liq 200 MG/10 ML UDC PO PRN (07:45)
[2017-09-18 09:25] LABS: Estimated Average Glucose 108 mg/dl; Hemoglobin A1C 5.4 %
[2017-09-18 10:50] VITALS: BP 102/66
--- NOTE | 2017-09-18 12:49 | Discharge Summary ---
- NOTES TO OUTPATIENT PROVIDER Notes to Outpatient Provider: Follow up with PCP in 2-3 days after discharge. Recheck BMP at that time (hypokalemia). Date of Encounter: 09/18/17 Time of Encounter: 12:47 - Discharge Diagnosis (1) Sepsis Priority: Primary Status: Resolved Qualifiers: Sepsis type: sepsis due to unspecified organism Qualified Code(s): A41.9 - Sepsis, unspecified organism (2) Community acquired pneumonia Priority: Secondary Status: Acute Qualifiers: Laterality: right Lung location: lower lobe of lung Qualified Code(s): J18.1 - Lobar pneumonia, unspecified organism (3) Nausea & vomiting Priority: Secondary Status: Resolved Qualifiers: Vomiting type: unspecified Vomiting Intractability: unspecified Qualified Code(s): R11.2 - Nausea with vomiting, unspecified (4) Elevated glucose Priority: Secondary Status: Resolved (5) DVT prophylaxis Priority: Secondary Status: Acute Hospital course: Mr. Marina is a 27 year old male with no significant PMH admitted for sepsis and community acquired pneumonia. He was admitted to general medical floor and started on IVF and IV levaquin. Blood cultures showed no growth final x 2. He had some N/V/D that was present prior to admission. No abdominal pain. CT abdomen/pelvis showed RLL pneumonia, possible gastroenteritis, enlarged appendix without inflammatory changes, and cholelithiasis with nodular gallbladder wall calcifications. He was switched to PO augmentin. Patient states that he feels great today, and he is back to his baseline. He denies any fever, chills, nausea, vomiting, or abdominal pain. He states that diarrhea is started to be formed now. He wants to go home. He will complete 7 full days of antibiotics, including 3 more days of augmentin at home. Augmentin should also cover any gastroenteritis, in addition to his community acquired pneumonia. He will follow up with PCP in 2-3 days after discharged. BMP can be rechecked at that time (hypokalemia). Patient has met maximum benefit of this hospitalization and will be discharged home in stable condition. Discharge discussed with: patient, family, nurse, social work, case management, other (Pharmacist) - Time Spent with Patient Total time spent providing and/or coordinating discharge services: Greater than 30 minutes - Discharge Medications Prescriptions: Amoxicillin/Clavulanate [Augmentin] 875 mg PO BIDWM #7 tablet Home Medications: Amoxicillin/Clavulanate [Augmentin] 875 mg PO BIDWM #7 tablet 09/18/17 [Rx] Allergies/Adverse Reactions: 3 Allergy/AdvReac Type Severity Reaction Status Date / Time azithromycin Allergy Hives Verified 09/15/17 01:09 carter flavor Allergy Swelling Verified 09/15/17 01:09 of Lip/Tongue/Throat Date of admission: 09/15/17 12:33 Primary care physician: PCP NONE Discharging clinician: Eulalio Arce Anticipated date of discharge: 09/18/17 - Constitutional Vitals: Temp Pulse Resp BP Pulse Ox 97.7 F 86 16 102/66 94 09/18/17 10:49 09/18/17 10:49 09/18/17 10:49 09/18/17 10:49 09/18/17 10:49 General appearance: Present: cooperative, A&O X 3, pleasant, no acute distress, obese, answers questions appropriately - Respiratory Respiratory exam: Present: CTAB. Absent: accessory muscle use, rales, rhonchi, wheezes Additional comments: Normal WOB - Cardiovascular Cardiovascular exam: Present: RRR, +S1, +S2. Absent: diastolic murmur, gallop, rubs, systolic murmur Additional comments: No BLE edema - GI/Abdominal GI/Abdominal exam: Present: normal bowel sounds, soft. Absent: distended, hepatomegaly, mass, splenomegaly, tenderness - Psychiatric Psychiatric exam: Present: normal affect, normal mood. Absent: agitated, anxious, depressed - Skin Skin exam: Present: dry, intact, warm. Absent: cyanosis, rash - Patient Status Disposition: Home, Self-Care Condition: Good Functional capacity at discharge: independent ambulation Overall status at discharge: patient is progressing back to baseline - Discharge Instructions Follow Up With: NONE,PCP [Primary Care Provider] - Additional Instructions: Follow up with PCP in 2-3 days after discharge. Recheck BMP at that time ( hypokalemia). - Diet and Activity Activity: resume usual activities as tolerated Diet: advance to your usual diet - VTE Documentation of Mechanical Device: Intermittent pneumatic compression device
== END 2017-09-18 13:56 | disposition home or self-care (01) | DRG 871 ==
LOC: 3NENU 01:00 → EMEROO 01:00 → 3NENU 05:55
PROVIDERS: ADMIT Internal Medicine; ATTEND Internal Medicine